=== PATIENT | male | born 1940 | race Two or more races ===

== ENCOUNTER 2018-10-25 00:23 | Emergency (ER) | payer MEDICARE, MEDICAID ==
[2018-10-25] MEDS ORDERED: Sodium Chloride 0.9% 1,000 ML IV ONE ×3 (00:56→01:55)
[2018-10-25] MEDS ORDERED: Etomidate 2 MG/ML 20 ML SDV IVPUSH ONE (01:06)
[2018-10-25] MEDS ORDERED: Succinylcholine 200 MG/10 ML MDV IV ONE (01:06)
[2018-10-25] MEDS ORDERED: Rocuronium 50 MG/5 ML Vial IV ONE ×2 (01:12→02:19)
[2018-10-25] MEDS ORDERED: Midazolam 1 MG/ML 2 ML SDV IVPUSH ONE (01:19)
[2018-10-25] MEDS ORDERED: Norepinephrine 4 MG in Dextrose 5% in Water 246 ML IV SCH ×2 (01:24)
[2018-10-25] MEDS ORDERED: Iopamidol 755 Mg/ML 75 ML Bottle IV ONE (01:53)
--- NOTE | 2018-10-25 02:30 | EDM.PDOC ---
ED HPI GENERAL MEDICAL PROBLEM - General Stated Complaint: SOB Time Seen by Provider: 10/25/18 00:55 Source of Information: Reports: EMS, Family (Patient's ) History Limitations: Reports: Altered Mental Status (Patient cannot provide me any information. Information I have comes from the patient's .) - History of Present Illness INITIAL COMMENTS - FREE TEXT/NARRATIVE: 77-year-old male who was in his usual state of health until approximately 6 PM tonight when he began to complain of some left hip pain to his . The pain was mild at this point. The says she gave him 2 aspirins at this point. He ate supper and had no problems doing this. At around 8 PM the pain seemed to worsen and seemed to radiate around to his abdomen and the left side. She states that she gave him 4 baby aspirins at this point. And from 8 PM to approximately 10 PM the pain seemed to worsen and he could not find comfort in any position. He was still awake alert and appropriate at this time. He had no difficulty breathing at this time. There was no nausea or vomiting. The pain was much more in his left and lower abdomen though not so much in his back or flank at this time. At this point, the called the embolus because his pain was quite severe and she did not feel that she could drive him to the hospital. When the patient arrives to the emergency department here, he is quite confused and is complaining of difficulty breathing. Basic EMS service's reported thus that his O2 saturations were in the 80s and he was placed on oxygen via rebreather mask initially and this was changed to 6 L/m via nasal cannula. His O2 saturations en route were in the 95% range according to EMS but he progressively became more confused and more agitated en route. He is awake and alert and he will look at the examiner and other ER personnel and reports to us that he can't breathe. He is not reporting any pain at this time. He is quite pale appearing and profusely diaphoretic. He has mottling of his lower extremities. No other history can be obtained. There are no other associated signs or symptoms. There are no other modifying factors. Onset: Today (6 PM) Duration: Getting Worse Location: Reports: Abdomen, Back Quality: Reports: Sharp Severity: Severe (By the time EMS was called per the ) Improves with: Reports: None Worsens with: Reports: None Treatments ETL ARCHITECT: Reports: Aspirin Past Medical History Respiratory History: Reports: COPD Genitourinary History: Reports: BPH - Past Surgical History Other Surgical History Comment: No previous operations. Social & Family History - Tobacco Use Smoking Status *Q: Heavy Tobacco Smoker - Alcohol Use Alcohol Use History: No - Living Situation & Occupation Living situation: Reports: (His is here now with him.) Social History Comment: He is a master records coordinator. ED ROS GENERAL - Review of Systems Review Of Systems: Unable To Obtain (The patient has altered mental status and is unable to provide this information. The only information I have is provided by the and is in the history of present illness.) ED EXAM, GI/ABD - Physical Exam Exam: See Below Exam Limited By: No Limitations General Appearance: Alert, Severe Distress, Other (Agitated and moving all over the stretcher.) Eyes: Bilateral: Normal Appearance, EOMI Nose: Normal Inspection, Normal Mucosa, No Blood Throat/Mouth: Normal Voice, No Airway Compromise, Other (Dry mucous membranes) Head: Atraumatic, Normocephalic Neck: Normal Inspection, Supple, Non-Tender, Full Range of Motion Respiratory/Chest: Lungs Clear, Respiratory Distress, Accessory Muscle Use Cardiovascular: No Edema, No Murmur, Tachycardia GI/Abdominal Exam: Soft, Abnormal Bowel Sounds (Decreased), Mass (Pulsatile abdominal mass) (Male) Exam: No Hernia, Circumcised Back Exam: Normal Inspection Extremities: No Pedal Edema, Slow Capillary Refill, Mottled (Lower extremities) , Pallor (Throughout), Other (No palpable femoral pulses. Radial pulses are strong and symmetric.) Neurological: Alert, CN II-XII Intact, No Motor/Sensory Deficits, Confused, Disoriented, Other (Agitated) Skin Exam: Diaphoretic, Mottled, Pallor ED ABDOMINAL/GI PROCEDURES - Additional/Other Procedure(s) Procedure(s) (Free Text): Using RSI technique and the glide scope, the patient was orally intubated using an 8-0 ET tube on first attempt. Immediate vital breath sounds were apparent with a good end-tidal pleth. Portal chest x-ray following intubation confirmed good ET tube placement. There were no apparent complications. EKG INTERPRETATION EKG Date: 10/25/18 Time: 00:56 Rhythm: NSR Rate (Beats/Min): 105 [place]: Normal P-Wave: Present QRS: Normal ST-T: Normal QT: Prolonged Comparison: NA - No Prior EKG Course - Orders/Labs/Meds Orders: Active Orders 24 hr Category Date Time Status CTA Abd Pelv w Cont [CT] Stat Exams 10/25/18 01:53 Taken Chest 1V Frontal [CR] Stat Exams 10/25/18 01:52 Taken CULTURE BLOOD [BC] Stat Lab 10/25/18 01:05 Ordered CULTURE BLOOD [BC] Stat Lab 10/25/18 02:00 Ordered Labs: Laboratory Tests 10/25/18 10/25/18 10/25/18 Range/Units 01:05 01:05 01:05 WBC 12.0 (4.5-12.0) X10-3/uL RBC 3.55 L (4.30-5.75) x10(6)uL Hgb 11.3 L (13.5-17.8) g/dL Hct 34.3 (30.0-51.3) % MCV 96.6 H (80-96) fL MCH 31.9 (27.7-33.6) pg MCHC 33.0 (32.2-35.4) g/dL RDW 13.6 (11.5-15.5) % Plt Count 194 (125-369) X10(3)uL MPV 8.6 (7.4-10.4) fL Neut % (Auto) 72.7 (46-82) % Lymph % (Auto) 24.0 (13-37) % Thomas % (Auto) 1.9 L (4-12) % Eos % (Auto) 1 (1.0-5.0) % Baso % (Auto) 0 (0-2) % Neut # (Auto) 8.8 H (1.6-8.3) # Lymph # (Auto) 2.9 (0.6-5.0) # Thomas # (Auto) 0.2 (0.0-1.3) # Eos # (Auto) 0.1 (0.0-0.8) # Baso # (Auto) 0.0 (0.0-0.2) # PT (8.7-11.1) INR (0.89-1.13) D-Dimer, Quantitative (0.0-0.59) mg/LFEU POC VBG pH (7.31-7.41) POC VBG pCO2 (41-51) mmHG POC VBG HCO3 (23-28) mmol/L POC VBG Total CO2 (24-29) mmol/L POC VBG Base Excess (-2-3) mmol/L Sodium 144 (135-145) mmol/L Potassium 3.3 L (3.5-5.3) mmol/L Chloride 104 (100-110) mmol/L Carbon Dioxide 19 L (21-32) mmol/L BUN 17 (7-18) mg/dL Creatinine 1.7 H (0.70-1.30) mg/dL Est Cr Clr Drug Dosing TNP Estimated GFR (MDRD) 39 L (>60) BUN/Creatinine Ratio 10.0 (9-20) Glucose 337 H (80-116) mg/dL Lactic Acid (0.4-2.2) mmol/L Calcium 8.3 L (8.6-10.2) mg/dL Magnesium (1.8-2.5) mg/dL Total Bilirubin 0.3 (0.1-1.3) mg/dL AST 23 (5-25) IU/L ALT 20 (12-36) U/L Alkaline Phosphatase 87 (56-112) IU/L Troponin I < 0.017 L (<0.017-0.056) ng/mL NT-Pro-B Natriuret Pep 1197 H* (<=450) pg/mL Total Protein 6.7 (6.0-8.0) g/dL Albumin 2.8 L (3.2-4.6) g/dL Globulin 3.9 g/dL Albumin/Globulin Ratio 0.7 10/25/18 10/25/18 10/25/18 Range/Units 01:05 01:05 01:05 WBC (4.5-12.0) X10-3/uL RBC (4.30-5.75) x10(6)uL Hgb (13.5-17.8) g/dL Hct (30.0-51.3) % MCV (80-96) fL MCH (27.7-33.6) pg MCHC (32.2-35.4) g/dL RDW (11.5-15.5) % Plt Count (125-369) X10(3)uL MPV (7.4-10.4) fL Neut % (Auto) (46-82) % Lymph % (Auto) (13-37) % Thomas % (Auto) (4-12) % Eos % (Auto) (1.0-5.0) % Baso % (Auto) (0-2) % Neut # (Auto) (1.6-8.3) # Lymph # (Auto) (0.6-5.0) # Thomas # (Auto) (0.0-1.3) # Eos # (Auto) (0.0-0.8) # Baso # (Auto) (0.0-0.2) # PT 11.6 H (8.7-11.1) INR 1.20 H (0.89-1.13) D-Dimer, Quantitative 9.49 H (0.0-0.59) mg/LFEU POC VBG pH (7.31-7.41) POC VBG pCO2 (41-51) mmHG POC VBG HCO3 (23-28) mmol/L POC VBG Total CO2 (24-29) mmol/L POC VBG Base Excess (-2-3) mmol/L Sodium (135-145) mmol/L Potassium (3.5-5.3) mmol/L Chloride (100-110) mmol/L Carbon Dioxide (21-32) mmol/L BUN (7-18) mg/dL Creatinine (0.70-1.30) mg/dL Est Cr Clr Drug Dosing Estimated GFR (MDRD) (>60) BUN/Creatinine Ratio (9-20) Glucose (80-116) mg/dL Lactic Acid 12.0 H* (0.4-2.2) mmol/L Calcium (8.6-10.2) mg/dL Magnesium 2.3 (1.8-2.5) mg/dL Total Bilirubin (0.1-1.3) mg/dL AST (5-25) IU/L ALT (12-36) U/L Alkaline Phosphatase (56-112) IU/L Troponin I (<0.017-0.056) ng/mL NT-Pro-B Natriuret Pep (<=450) pg/mL Total Protein (6.0-8.0) g/dL Albumin (3.2-4.6) g/dL Globulin g/dL Albumin/Globulin Ratio 10/25/18 Range/Units 01:14 WBC (4.5-12.0) X10-3/uL RBC (4.30-5.75) x10(6)uL Hgb (13.5-17.8) g/dL Hct (30.0-51.3) % MCV (80-96) fL MCH (27.7-33.6) pg MCHC (32.2-35.4) g/dL RDW (11.5-15.5) % Plt Count (125-369) X10(3)uL MPV (7.4-10.4) fL Neut % (Auto) (46-82) % Lymph % (Auto) (13-37) % Thomas % (Auto) (4-12) % Eos % (Auto) (1.0-5.0) % Baso % (Auto) (0-2) % Neut # (Auto) (1.6-8.3) # Lymph # (Auto) (0.6-5.0) # Thomas # (Auto) (0.0-1.3) # Eos # (Auto) (0.0-0.8) # Baso # (Auto) (0.0-0.2) # PT (8.7-11.1) INR (0.89-1.13) D-Dimer, Quantitative (0.0-0.59) mg/LFEU POC VBG pH 7.00 L (7.31-7.41) POC VBG pCO2 65.8 H (41-51) mmHG POC VBG HCO3 16.4 L (23-28) mmol/L POC VBG Total CO2 18 L (24-29) mmol/L POC VBG Base Excess -15 L (-2-3) mmol/L Sodium (135-145) mmol/L Potassium (3.5-5.3) mmol/L Chloride (100-110) mmol/L Carbon Dioxide (21-32) mmol/L BUN (7-18) mg/dL Creatinine (0.70-1.30) mg/dL Est Cr Clr Drug Dosing Estimated GFR (MDRD) (>60) BUN/Creatinine Ratio (9-20) Glucose (80-116) mg/dL Lactic Acid (0.4-2.2) mmol/L Calcium (8.6-10.2) mg/dL Magnesium (1.8-2.5) mg/dL Total Bilirubin (0.1-1.3) mg/dL AST (5-25) IU/L ALT (12-36) U/L Alkaline Phosphatase (56-112) IU/L Troponin I (<0.017-0.056) ng/mL NT-Pro-B Natriuret Pep (<=450) pg/mL Total Protein (6.0-8.0) g/dL Albumin (3.2-4.6) g/dL Globulin g/dL Albumin/Globulin Ratio Meds: Medications Discontinued Medications Generic Name Dose Route Start Last Admin Trade Name Freq PRN Reason Stop Dose Admin Iopamidol 75 ml 10/25/18 01:53 10/25/18 02:03 Isovue-370 (76%) IV 10/25/18 01:54 75 ml ONETIME ONE Administration - Radiology Interpretation Free Text/Narrative:: Portable chest x-ray shows COPD but no acute process. CT of abdomen and pelvis with IV contrast (CTA) shows 6+ centimeter AAA with posterior rupture and free log on the right side. - Re-Assessments/Exams Free Text/Narrative Re-Assessment/Exam: 10/25/18 02:38: The following represents a brief narrative of the patient's course in the emergency department. The patient presented in extremis with hypotension, respiratory distress and agitation. Blood pressure initially was 60 -70 systolic. He had mottled periphery and was pale throughout. EKG performed showed no STEMI pattern. At this point, the patient was urgently intubated using RSI technique with an 8-0 ET tube, 2 large-bore IVs were established, a Lima catheter was placed and infusion of normal saline 2 L was begun. The patient had no urine initially and his pressure came up to the 80 systolic range with IV fluids. At this point it was noted that he had a pulsatile abdominal mass and ultrasound confirmed the presence of AAA. There was no definite free fluid seen on ultrasound. A portable chest x-ray had been performed at this time and this was negative. The patient was taken to CT at this point after being placed on a Levophed drip. His pressure was 95 systolic at this point. The patient's lab tests are back at this point and showed a normal hemoglobin, normal chemistries with a creatinine of 1.7, elevated BNP and lactic acid of 12. The venous gas showed a pH of 7.00 and a PCO2 of 66. Once back from CT scan the patient's pressure wiley to the 160-180 systolic range and the lever for drip was discontinued. At this point the patient had received 2-1/2 L of normal saline and this was cut back to 150 mL per hour. His blood pressure dropped to the 130 systolic range and stayed in that area with the remainder of his ED course. Review of the CT scan by the radiologist did show a posterior rupture of the AAA with free fluid in the right abdomen. I had called and discussed the patient's case with Dr. Romero, ED physician at [facility] in [place], and he has accepted the patient. [facility] air ambulance was called and arrived and will be transporting the patient directly to the emergency department at [facility]. Departure - Departure Time of Disposition: 02:30 Disposition: DC/Tfer to Acute Hospital 02 Condition: Critical Clinical Impression: Ruptured abdominal aortic aneurysm (AAA), Hypovolemic shock Respiratory failure Qualifiers: Chronicity: acute Respiratory failure complication: hypoxia and hypercapnia Qualified Code(s): J96.01 - Acute respiratory failure with hypoxia - Discharge Information Referrals: Fadumo Merritt PA [Primary Care Provider] - Critical Care Note - Critical Care Note Total Time (mins): 75 Comments: Total critical care time spent with the patient was 75 minutes. - My Orders Last 24 Hours: My Active Orders 10/25/18 01:05 CULTURE BLOOD [BC] Stat 10/25/18 01:52 Chest 1V Frontal [CR] Stat 10/25/18 01:53 CTA Abd Pelv w Cont [CT] Stat 10/25/18 02:00 CULTURE BLOOD [BC] Stat - Assessment/Plan Last 24 Hours: My Active Orders 10/25/18 01:05 CULTURE BLOOD [BC] Stat 10/25/18 01:52 Chest 1V Frontal [CR] Stat 10/25/18 01:53 CTA Abd Pelv w Cont [CT] Stat 10/25/18 02:00 CULTURE BLOOD [BC] Stat
== END 2018-10-25 02:34 ==
LOC: FB.ED 00:23
DX: J96.01 Acute respiratory failure with hypoxia (principal); I71.3 Abdominal aortic aneurysm, ruptured; J44.9 Chronic obstructive pulmonary disease, unspecified; F17.210 Nicotine dependence, cigarettes, uncomplicated
CPT/HCPCS: 31500; 36415; 51702; 71045; 74174; 80053; 82803; 83605; 83735; 83880; 84484; 85025; 85379; 85610; 87040; 93005; 96361; 96365; 96375; 96376; 99285; J0330; J2250; J3490; J7030; J7060; Q9967; 93010; 99291; 99292